=== PATIENT | female | born 1970 | race Caucasian/White ===

== ENCOUNTER 2023-01-17 07:14 | Outpatient (CLI) | payer BC | END 2023-01-17 07:15 | disposition home or self-care (01) | LOC: ULT 07:14 | PROVIDERS: ATTEND Nurse Practitioner Family | DX: R10.10 Upper abdominal pain, unspecified (principal); K80.20 Calculus of gallbladder without cholecystitis without obstruction; R16.0 Hepatomegaly, not elsewhere classified | CPT/HCPCS: 76700 ==

== ENCOUNTER 2023-03-08 11:10 | Emergency (ER) | payer BC ==
[2023-03-08 12:25] LABS: #Basophils 0.1 thou/uL (0.0-0.2); #Eosinphils 0.1 thou/uL (0.0-0.7); #Neutrophils 12.9 thou/uL (1.40-6.50); %Basophils 0.4 % (0.0-1.0); %Eosinophils 0.9 % (0.0-10.0); %Monocytes 6.4 % (0.0-10.0); %Neutrophils 81.8 % (42.0-75.0); Hematocrit 36.8 % (36.0-47.0); Hemoglobin 10.6 g/dL (12.0-16.0); Mean Corpuscular HGB CONC 28.8 g/dL (32.0-36.0); Mean Corpuscular Hemoglobin 20.2 pg (27.0-31.0); Mean Corpuscular Volume 70.1 fl (78.0-98.0); Platelet Count 508 10x3/uL (130-400); RBC Distribution Width 19.4 % (11.5-14.5); Red Blood Cell (RBC) Count 5.25 mill/uL (4.20-5.40); White Blood Cell (WBC) Count 15.7 10x3/uL (4.8-10.8)
[2023-03-08 12:53] LABS: Burr Cells SLIGHT = 2-5 cells HPF (0-1); CellaVision Operator ID LAB.KB; Elliptocytes SLIGHT = 2-5 cells HPF (0-1); Hypochromia SLIGHT = 6-15 cells HPF (0-5); Microcytosis SLIGHT = 6-15 cells HPF (0-5); Platelet Adequacy Comment Platelets Increased; Polychromasia SLIGHT = 2-3 cells HPF (0-2)
[2023-03-08 12:57] LABS: ALT (SGPT) 16 U/L (8-55); AST (SGOT) 21 U/L (5-34); Albumin 4.2 g/dL (3.5-5.0); Alkaline Phosphatase 108 U/L (40-110); Anion Gap 14 mmol/L (10-20); BUN (Urea Nitrogen) 12 mg/dL (7.0-18.7); Bilirubin, Total 0.5 mg/dL (0.2-1.2); Calc. Creatinine Clearance 0 mL/min (70-130); Calcium 9.2 mg/dL (7.8-10.44); Carbon Dioxide 22 mmol/L (22-29); Chloride 106 mmol/L (98-107); Estimated GFR 81; Globulin 3.7 g/dL (2.4-3.5); Glucose 169 mg/dL (70-105); Lipase 10 U/L (8-78); Potassium 4.1 mmol/L (3.5-5.1); Protein, Total 7.9 g/dL (6.0-8.3); Sodium 138 mmol/L (136-145); Troponin I Less than 0.010 ng/mL (< 0.028)
[2023-03-08 15:06] LABS: PTT 30.4 sec (22.9-36.1); Prothrombin Time 13.1 sec (12.0-14.7)
[2023-03-08 15:42] LABS: Lactic Acid 1.4 mmol/L (0.5-2.2)
== END 2023-03-08 16:18 | disposition home or self-care (01) ==
LOC: ERS 11:10
DX: K80.20 Calculus of gallbladder without cholecystitis without obstruction (principal); N85.00 Endometrial hyperplasia, unspecified; K57.30 Diverticulosis of large intestine without perforation or abscess without bleeding; D72.829 Elevated white blood cell count, unspecified; K21.9 Gastro-esophageal reflux disease without esophagitis
CPT/HCPCS: 36415; 71045; 74177; 76705; 76856; 80053; 83605; 83690; 84484; 85025; 85610; 85730; 87040; 93005

== ENCOUNTER 2023-05-12 13:54 | Outpatient (CLI) | payer BC ==
[2023-05-12 15:34] LABS: #Basophils 0.1 10x3/uL (0.0-0.2); #Eosinphils 0.3 10x3/uL (0.0-0.5); #Monocytes 0.8 10x3/uL (0.0-1.1); #Neutrophils 7.8 10x3/uL (1.5-8.4); %Basophils 0.6 % (0.0-2.0); %Eosinophils 2.8 % (0.0-6.0); %Lymphocytes 17.8 % (18.0-47.0); %Monocytes 7.2 % (0.0-10.0); %Neutrophils 71.2 % (40.0-75.0); Hematocrit 38.3 % (34.9-44.5); Hemoglobin 11.5 g/dL (12.0-15.5); Mean Corpuscular Volume 76.8 fl (81.6-98.3); Mean Platelet Volume 10.1 fl (7.4-10.4); Platelet Count 462 10x3/uL (150-450); RBC Distribution Width 23.6 % (11.5-14.5); Red Blood Cell (RBC) Count 4.99 10x6/uL (3.90-5.03)
[2023-05-12 15:48] LABS: ALT (SGPT) 19 U/L (8-55); AST (SGOT) 17 U/L (5-34); Albumin 4.4 g/dL (3.5-5.0); Alkaline Phosphatase 123 U/L (40-110); Anion Gap 15 mmol/L (10-20); BUN (Urea Nitrogen) 15 mg/dL (7.0-18.7); Bilirubin, Total 0.5 mg/dL (0.2-1.2); Calc. Creatinine Clearance 0 mL/min (70-130); Calcium 9.6 mg/dL (7.8-10.44); Carbon Dioxide 27 mmol/L (22-29); Chloride 102 mmol/L (98-107); Estimated GFR 82; Globulin 3.7 g/dL (2.4-3.5); Glucose 98 mg/dL (70-105); Potassium 4.1 mmol/L (3.5-5.1); Protein, Total 8.1 g/dL (6.0-8.3); Sodium 140 mmol/L (136-145)
== END 2023-05-12 13:55 | disposition home or self-care (01) ==
LOC: LABBT 13:54
PROVIDERS: ATTEND Specialist
DX: Z01.812 Encounter for preprocedural laboratory examination (principal); K80.20 Calculus of gallbladder without cholecystitis without obstruction
CPT/HCPCS: 80053; 85025

== ENCOUNTER 2023-05-18 06:33 | Day surgery (SDC) | payer BC ==
[2023-05-12 14:30] VITALS: BMI 48.4
[2023-05-18] MEDS ORDERED: Acetaminophen 500 MG TAB ONE (07:20)
[2023-05-18] MEDS ORDERED: Sodium Chloride 0.9% 100 ML ONE (07:21)
[2023-05-18] MEDS ORDERED: Ketorolac Tromethamine 30 MG/ML VIAL ONE (07:21)
[2023-05-18] MEDS ORDERED: CEFAZOLIN 2 GM VIAL ONE (07:21)
[2023-05-18] MEDS ORDERED: Midazolam HCl 2 mg/2 ml Vial ONE (07:41)
[2023-05-18] MEDS ORDERED: fentaNYL 50 mcg/mL 1 mL Vial ONE ×2 (08:39→11:18)
[2023-05-18] MEDS ORDERED: SUGAMMADEX SODIUM 200 MG/2 ML VIAL ONE (08:40)
[2023-05-18] MEDS ORDERED: EPINEPHrine 1 MG/ML VIAL ONE (08:42)
[2023-05-18] MEDS ORDERED: Bupivacaine 0.25% HCL 30 ML VIAL ONE (08:42)
[2023-05-18] MEDS ORDERED: Rocuronium Bromide 10 MG/ML (10ML VIAL) ONE (09:12)
[2023-05-18] MEDS ORDERED: Ondansetron PF 4 MG/2 ML Vial ONE ×3 (09:12→13:02)
[2023-05-18] MEDS ORDERED: PROPOFOL 200 MG/20 ML VIAL ONE (09:12)
[2023-05-18] MEDS ORDERED: Sevoflurane 250 ML INH ANEST BOTTLE ONE (10:13)
[2023-05-18] MEDS ORDERED: fentaNYL PF 100 MCG/2 ML SYRINGE ONE (10:50)
[2023-05-18] MEDS ORDERED: Promethazine 25 MG TAB ONE (12:11)
== END 2023-05-18 13:00 | disposition home or self-care (01) ==
LOC: SDC 06:33
PROVIDERS: ATTEND Specialist
PROC: 0FT44ZZ Resection of Gallbladder, Percutaneous Endoscopic Approach (ICD-10-PCS; principal; 2023-05-18)
DX: K80.10 Calculus of gallbladder with chronic cholecystitis without obstruction (principal); K82.8 Other specified diseases of gallbladder; E66.01 Morbid (severe) obesity due to excess calories; I10 Essential (primary) hypertension; Z98.890 Other specified postprocedural states; Z68.42 Body mass index [BMI] 45.0-49.9, adult; Z79.899 Other long term (current) drug therapy; Z88.4 Allergy status to anesthetic agent
CPT/HCPCS: 88304; C1889; J0171; J1885; J2250; J2405; J2704; J3010; J3490; Q0169; S0020

== ENCOUNTER 2023-12-25 16:00 | Outpatient (CLI) | payer BC | END 2023-12-25 16:01 | disposition home or self-care (01) | LOC: SLEEPLAB 16:00 | PROVIDERS: ATTEND Nurse Practitioner Family | DX: G47.33 Obstructive sleep apnea (adult) (pediatric) (principal); R09.02 Hypoxemia; G47.00 Insomnia, unspecified; K21.9 Gastro-esophageal reflux disease without esophagitis; I10 Essential (primary) hypertension; R53.83 Other fatigue; R40.0 Somnolence; R06.89 Other abnormalities of breathing | CPT/HCPCS: 95800 ==